=== PATIENT | female | born 1975 | race Caucasian/White ===

== ENCOUNTER 2020-07-07 10:26 | Outpatient (CLI) | payer BC ==
[2020-07-07 14:53] LABS: BASOPHILS % (AUTO) 0.6 %; EOSINOPHILS # (AUTO) 0.2 10^3/uL (0.0-0.7); EOSINOPHILS % (AUTO) 3.5 %; HCT - HEMATOCRIT 37.9 % (37.0-47.0); HGB - HEMOGLOBIN 12.7 g/dL (12.0-16.0); LYMPHOCYTES # (AUTO) 1.5 10^3/uL (1.5-3.5); LYMPHOCYTES % (AUTO) 30.3 %; MEAN CORPUSCULAR HEMOGLOBIN 30.7 pg (27.0-31.0); MEAN CORPUSCULAR HGB CONC 33.5 g/dL (32.0-36.0); MEAN CORPUSCULAR VOLUME 91.5 fL (81.0-99.0); MEAN PLATELET VOLUME 10.9 fL (7.9-10.8); MONOCYTES # (AUTO) 0.3 10^3/uL (0.0-1.0); MONOCYTES % (AUTO) 5.9 %; NEUTROPHILS % (AUTO) 59.5 %; PLT - PLATELET COUNT 234 10^3/uL (130-450); RED BLOOD COUNT 4.14 10^6/uL (4.20-5.40); RED CELL DISTRIBUTION WIDTH 11.9 % (12.0-15.0); WHITE BLOOD COUNT 5.1 x10^3/uL (4.8-10.8)
[2020-07-07 15:11] LABS: ALBUMIN 4.3 g/dL (3.2-5.5); ALBUMIN/GLOBULIN RATIO 1.3 (1.0-2.2); BILIRUBIN,TOTAL 0.6 mg/dL (0.2-1.0); CREATININE 0.7 mg/dL (0.4-1.0); POTASSIUM 4.1 mmol/L (3.5-5.0); TOTAL PROTEIN 7.6 g/dL (6.7-8.2)
[2020-07-07 15:31] LABS: THYROID STIMULATING HORMONE 1.58 uIU/mL (0.34-5.60)
== END 2020-07-07 10:27 | disposition home or self-care (01) ==
LOC: LAB.S 10:26
PROVIDERS: ATTEND Physician Assistant Medical
DX: N92.4 Excessive bleeding in the premenopausal period (principal); R53.83 Other fatigue; R10.9 Unspecified abdominal pain
CPT/HCPCS: 36415; 80053; 84443; 85025

== ENCOUNTER 2020-08-10 13:47 | Outpatient (CLI) | payer BC ==
--- NOTE | 2020-08-10 15:28 | Ultrasound Report ---
PROCEDURE: Pelvic w/Transvaginal INDICATIONS: ABD PAIN,FATIGUE, MENORRHAGIA TECHNIQUE: Real-time scanning was performed of the pelvic organs, with image documentation. Additional endovagi nal scanning was necessary due to incomplete visualization of the adnexal and endometrial structures by transabdominal scanning. COMPARISON: None. FINDINGS: No pathologic free abdominal or pelvic fluid. Uterus: Uterus is normal in size at 4.7 x 6.0 x 8.5 cm. No uterine mass. The endometrium measures 7 mm in combined thickness. Ovaries: The right ovary measures 1.5 x 1.0 x 2.6 cm and is unremarkable. The left ovary measures 2. 3 x 2.6 x 1.9 cm, inclusive of a 1.9 x 1.7 x 2.2 cm simple cyst. No solid ovarian or adnexal mass. IMPRESSION: Simple cyst in the left ovary measuring up to 2.2 cm. Otherwise unremarkable exam. Reviewed by: Kishore Ramirez MD on 08/10/2020 3:27 PM PDT Approved by: Kishore Ramirez MD on 08/10/2020 3:27 PM PDT Station ID: [id number]
--- NOTE | 2020-08-10 15:30 | Ultrasound Report ---
PROCEDURE: Abdomen Complete INDICATIONS: ABD PAIN,FATIGUE, MENORRHAGIA TECHNIQUE: Real-time scanning was performed of the abdominal and retroperitoneal organs, with image documentatio n. COMPARISON: None. FINDINGS: Liver: Liver is normal in size and homogeneous in echotexture. Gallbladder: Normal distended gallbladder without wall thickening, para cholecystic fluid, gallstone, or sludge. Biliary ducts: Normal caliber. Pancreas: Visualized portions of the pancreas are sonographically normal. Spleen: Spleen is normal in size and homogeneous in echotexture. Kidneys: The right kidney measures 11.0 cm in long axis with a 1.0 cm cortical thickness. The left ki dney measures 10.57 m in long axis with a 1.3 cm cortical thickness. There is a cyst in the medial as pect of the left kidney measuring up to 1.1 cm. A nonobstructing calculus in the inferior pole of the left kidney measures approximately 7-8 mm. No hydronephrosis. Aorta: Visualized aorta is normal in caliber at less than 3 cm. Iliacs: Proximal common iliac arteries are normal in caliber at less than 2.5 cm. IVC: Intrahepatic inferior vena cava is patent. Miscellaneous: No free abdominal fluid. IMPRESSION: Nonobstructing left lower pole calculus measuring 7-8 mm. Otherwise normal study. Reviewed by: Kishore Ramirez MD on 08/10/2020 3:29 PM PDT Approved by: Kishore Ramirez MD on 08/10/2020 3:29 PM PDT Station ID: [id number]
== END 2020-08-10 13:48 | disposition home or self-care (01) ==
LOC: DI 13:47
PROVIDERS: ATTEND Physician Assistant Medical
DX: R10.9 Unspecified abdominal pain (principal); N92.4 Excessive bleeding in the premenopausal period; R53.83 Other fatigue; N83.202 Unspecified ovarian cyst, left side; N20.0 Calculus of kidney; N28.1 Cyst of kidney, acquired

== ENCOUNTER 2021-01-24 11:46 | Emergency (ER) | payer BC, OTHER ==
[2021-01-24 12:40] LABS: BASOPHILS % (AUTO) 0.3 %; EOSINOPHILS # (AUTO) 0.1 10^3/uL (0.0-0.7); EOSINOPHILS % (AUTO) 0.9 %; HCT - HEMATOCRIT 37.9 % (37.0-47.0); LYMPHOCYTES # (AUTO) 1.5 10^3/uL (1.5-3.5); LYMPHOCYTES % (AUTO) 13.2 %; MEAN CORPUSCULAR HGB CONC 34.3 g/dL (32.0-36.0); MEAN CORPUSCULAR VOLUME 90.5 fL (81.0-99.0); MEAN PLATELET VOLUME 9.9 fL (7.9-10.8); MONOCYTES # (AUTO) 0.8 10^3/uL (0.0-1.0); MONOCYTES % (AUTO) 7.4 %; NEUTROPHILS # (AUTO) 8.8 10^3/uL (1.5-6.6); NEUTROPHILS % (AUTO) 77.8 %; PLT - PLATELET COUNT 236 10^3/uL (130-450); RED BLOOD COUNT 4.19 10^6/uL (4.20-5.40); RED CELL DISTRIBUTION WIDTH 11.7 % (12.0-15.0); WHITE BLOOD COUNT 11.4 x10^3/uL (4.8-10.8)
[2021-01-24 12:53] LABS: ALBUMIN 4.1 g/dL (3.2-5.5); BILIRUBIN,TOTAL 1.3 mg/dL (0.2-1.0); CALCIUM 8.8 mg/dL (8.5-10.3); CREATININE 0.8 mg/dL (0.4-1.0); POTASSIUM 3.8 mmol/L (3.5-5.0); TOTAL PROTEIN 8.2 g/dL (6.7-8.2)
--- NOTE | 2021-01-24 14:04 | ED Physician Documentation ---
PD HPI ABD PAIN - Stated complaint Stated Complaint: ABD PX - Chief complaint Chief Complaint: Abd Pain - History obtained from History obtained from: Patient - Additional information Additional information: 46-year-old woman with history of , otherwise no abdominal surgeries. She has been feeling a little off all week with chills, body aches, and over the last 4 days or so has had progressive pelvic pain and abdominal bloating, now more in the left lower quadrant. She did have some hematochezia a few days ago which has resolved. No history of diverticula or colonoscopies. Declines pain medication on initial evaluation. No measured fevers. No sick contacts. She is immunized against Covid with Scoreloop 2 shots. Review of Systems Ten Systems: 10 systems reviewed and negative Constitutional: reports: Chills, Myalgias, Fatigue. denies: Fever Cardiac: denies: Chest pain / pressure, Palpitations Respiratory: denies: Dyspnea, Cough PD PAST MEDICAL HISTORY - Present Medications Home Medications: Ambulatory Orders Medication Instructions Recorded Confirmed Amox/Clav 875/125 [Augmentin] 1 each PO TID #21 tablet 01/24/21 - Allergies Allergies/Adverse Reactions: Allergies Allergy/AdvReac Type Severity Reaction Status Date / Time codeine Allergy Nausea Verified 01/24/21 11:58 PD ED PE NORMAL - Vitals Vital signs reviewed: Yes - General General: Alert and oriented X 3, No acute distress - HEENT HEENT: PERRL, EOMI - Neck Neck: Supple, no meningeal sign, No bony TTP - Cardiac Cardiac: RRR, No murmur - Respiratory Respiratory: No respiratory distress, Clear bilaterally - Abdomen Abdomen: Normal bowel sounds, Soft, Other (Mild tenderness in the left lower quadrant without surgical signs) - Back Back: No CVA TTP, No spinal TTP - Derm Derm: Normal color, Warm and dry - Extremities Extremities: No edema, No calf tenderness / cord - Neuro Neuro: Alert and oriented X 3, Normal speech Results - Vitals Vitals: Vital Signs - 24 hr 01/24/21 01/24/21 01/24/21 11:57 14:40 15:58 Temperature 37.3 C Heart Rate 97 96 98 Respiratory 16 18 16 Rate Blood Pressure 123/69 116/83 H 118/75 O2 Saturation 98 99 98 01/24/21 16:38 Temperature Heart Rate 88 Respiratory 16 Rate Blood Pressure 115/73 O2 Saturation 97 Oxygen O2 Source Room air - Labs Labs: Laboratory Tests 01/24/21 01/24/21 01/24/21 12:36 12:36 13:55 WBC 11.4 H RBC 4.19 L Hgb 13.0 Hct 37.9 MCV 90.5 MCH 31.0 MCHC 34.3 RDW 11.7 L Plt Count 236 MPV 9.9 Neut # (Auto) 8.8 H Lymph # (Auto) 1.5 [place] # (Auto) 0.8 Eos # (Auto) 0.1 Baso # (Auto) 0.0 Absolute Nucleated RBC 0.00 Nucleated RBC % 0.0 Sodium 134 L Potassium 3.8 Chloride 100 L Carbon Dioxide 26 Anion Gap 8.0 BUN 8 Creatinine 0.8 Estimated GFR (MDRD) 77 L Glucose 91 Calcium 8.8 Total Bilirubin 1.3 H AST 16 ALT 14 Alkaline Phosphatase 57 Total Protein 8.2 Albumin 4.1 Globulin 4.1 Albumin/Globulin Ratio 1.0 Lipase 24 Urine Color YELLOW Urine Clarity CLEAR Urine pH 7.0 Ur Specific [place] 1.015 Urine Protein NEGATIVE Urine Glucose (UA) NEGATIVE Urine Ketones TRACE Urine Occult Blood NEGATIVE Urine Nitrite NEGATIVE Urine Bilirubin NEGATIVE Urine Urobilinogen 0.2 (NORMAL) Ur Leukocyte Esterase NEGATIVE Ur Microscopic Review NOT INDICATED Urine Culture Comments NOT INDICATED Urine HCG, Qual NEGATIVE PD MEDICAL DECISION MAKING - ED course ED course: 46-year-old woman with left-sided abdominal pain. CT demonstrating both diverticulitis as well as an ovarian cyst. Given her symptoms I suspect the pain is mostly from the former. Given that she is already had symptoms for a week with prominent systemic symptoms after discussion with the patient opted for antibiotic treatment as opposed to watchful waiting with dietary restrictions. Departure - Departure Disposition: 01 Home, Self Care Clinical Impression: Diverticulitis of gastrointestinal tract Condition: Good Record reviewed to determine appropriate education?: Yes Instructions: ED Diverticulitis Prescriptions: Amox/Clav 875/125 [Augmentin] 1 each PO TID #21 tablet Comments: As discussed, it looks like you have a mild case of sigmoid diverticulitis as well as a left ovarian cyst. I think it is probably the diverticulitis that is causing the bulk of your pain. You can follow-up with Dr. Roman regarding the cyst, but also follow-up with your primary care physician for consideration for referral for colonoscopy in approximately 2 months time. Clear liquid diet for the next 24 hours, then a low residue diet with not much in the way of fiber for the next 2 days after that. Return for new or worsening symptoms. Discharge Date/Time: 01/24/21 17:13
[2021-01-24] MEDS ORDERED: KETOROLAC 30 MG/ML VIAL IVP STA (14:23)
[2021-01-24 14:25] LABS: BILIRUBIN,URINE NEGATIVE (NEGATIVE); GLUCOSE, URINE (UA) NEGATIVE (NEGATIVE); KETONES,URINE (UA) TRACE mg/dL (NEGATIVE); LEUKOCYTE ESTERASE, URINE NEGATIVE (NEGATIVE); NITRITE,URINE NEGATIVE (NEGATIVE); OCCULT BLOOD,URINE NEGATIVE (NEGATIVE); PROTEIN,URINE NEGATIVE (NEGATIVE); UROBILINOGEN,URINE 0.2 (NORMAL) E.U./dL (NORMAL)
[2021-01-24 14:27] LABS: CLARITY,URINE CLEAR (CLEAR); HCG UR QUAL NEGATIVE
[2021-01-24] MEDS ORDERED: IOVERSOL 320 100 ML VIAL IVP ONE ×2 (14:58→18:04)
[2021-01-24 16:39] VITALS: BP 115/73
--- NOTE | 2021-01-24 16:47 | CT Report ---
PROCEDURE: Abdomen/Pelvis W INDICATIONS: IV only, LLQ pain CONTRAST: IV CONTRAST: Optiray 320 ml: 100 PO CONTRAST: *NO PO CONTRAST TECHNIQUE: After the administration of IV contrast, 5 mm thick sections acquired from the diaphragms to the symp hysis. 5 mm thick coronal and sagittal reformats were acquired. For radiation dose reduction, the f ollowing was used: automated exposure control, adjustment of mA and/or kV according to patient size. COMPARISON: None. FINDINGS: Image quality: Excellent. ABDOMEN: Lung bases: Lung bases are clear. Heart size is normal. Solid organs: Liver and spleen are normal in size and enhancement. Gallbladder wall does not appear thickened. Biliary system is non dilated. Pancreas enhances normally. No adrenal nodules. Kidneys demonstrate normal size and enhancement, without hydronephrosis. The inferior pole of the le ft kidney, there is a mildly hyperdense cyst seen that measures 13 mm and 20 Hounsfield units. Within the left mid kidney, there is a 13 mm mildly hyperdense cyst that measures 16 Hounsfield units. At t he inferior pole of the right kidney, there is a nonobstructing 1 mm stone, as on series 6 image 30. Peritoneum and bowel: Within the descending colon, there is focal moderate wall thickening with surr ounding inflammatory change. Diverticula formation can be seen within this region. No abscess formati on is seen. No free air or significant free fluid can be seen. Sigmoid diverticulosis is seen, withou t sigmoid diverticulitis. Bowel loops otherwise demonstrate normal wall thickness and caliber. A mild amount of hyperdense mat erial can be seen within the descending colon. Please correlate with hyperdense ingestions, such as P epto-Bismol. A normal-appearing appendix is seen posterior to the descending colon, projected superi wilder. A moderate amount of stool is seen within the colon. Nodes and vessels: No retroperitoneal or mesenteric adenopathy by size criteria. Aorta and inferior vena cava are normal in size. Miscellaneous: No ventral hernias. PELVIS: Genitourinary: Bladder wall thickness is normal. The uterus demonstrates an unremarkable appearance for age. There is a rim-enhancing left ovarian cyst seen that measures 1.8 cm, as on series 3 image 62. No adnexal masses are seen. A mild amount of free fluid can be seen within the pelvis. Miscellaneous: No inguinal hernias or adenopathy. Bones: No suspicious bony lesions. No vertebral body compression fractures. This patient has trans itional anatomy. For the purposes of this examination, the level with the tiny vestigial ribs is cons idered to be L1. By this numbering scheme, the S1 level is transitional and highly lumbarized. Focal lower lumbar spine degenerative changes are seen. Mild dextroconvex scoliotic curvature is seen. IMPRESSION: Descending colon diverticulitis, without findings of perforation or abscess. A colonoscopy is recommended for further evaluation, following treatment of the patient's current cli nical episode, for evaluation of a potential underlying mass. Likely hemorrhagic cyst of the left ovary, with a smaller free fluid seen within the pelvis. If cli nically appropriate, a follow-up pelvic ultrasound could be considered for further evaluation. There is a moderate amount of stool seen within the colon. Please correlate with clinical constipatio n. Normal appendix. Likely hyperdense cysts of the left kidney. When clinically appropriate, please consider follow-up ul trasound for confirmation of the cystic nature of these lesions. Incidental note is made of: Transitional lumbar anatomy Focal lower lumbar spine degenerative change Reviewed by: Leroy Quinteros MD on 01/24/2021 3:46 PM [facility] Approved by: Leroy Quinteros MD on 01/24/2021 3:46 PM [facility] Station ID: [id number]
[2021-01-24] MEDS ORDERED: HYDROcod/ACET 5/325 Prepack 4 PO STA (16:56)
[2021-01-24] MEDS ORDERED: AMOX/CLAV 875 MG/125 MG TABLET PO STA (16:56)
== END 2021-01-24 17:13 | disposition home or self-care (01) ==
LOC: ED 11:46
DX: K57.32 Diverticulitis of large intestine without perforation or abscess without bleeding (principal)
CPT/HCPCS: 36415; 74177; 80053; 81003; 81025; 83690; 85025; 96374; 99283; 99284; A9270; Q9967; 81001; 87086